=== PATIENT | male | born 1970 | race Caucasian/White ===

== ENCOUNTER 2018-05-04 07:58 | Emergency (ER) | payer OTHER ==
[2018-05-04 09:15] VITALS: BP 125/99
--- NOTE | 2018-05-04 09:22 | UC ---
UC General HPI - HPI Summary HPI Summary: roused from sleep ya ago(3 days ago) with numbness to his R forearm and weakness to R hand. not improving and wants to ensure not a stroke. no associated neck pain, ARTEAGA, visual changes, changes in vision/speech. no other focal numbness/weakness. hx high cholesterol, smoking, htn- tx in past but none now. mother had a stroke. also notes chest cold. - History of Current Complaint Stated Complaint: RIGHT ARM CONCERN, COUGH, CONGESTION Time Seen by Provider: 05/04/18 08:48 Pain Intensity: 4 Alleviating: nothing Associated Signs & Symptoms: Positive: Cough, Wheezing. Negative: Chest Pain, Fever, Headache - Allergy/Home Medications Allergies/Adverse Reactions: Allergies Allergy/AdvReac Type Severity Reaction Status Date / Time No Known Allergies Allergy Verified 05/04/18 09:16 Home Medications: Home Medications NK [No Home Medications Reported] 05/04/18 [History Confirmed 05/04/18] PMH/Surg Hx/FS Hx/Imm Hx Endocrine History: Dyslipidemia Cardiovascular History: Hypertension - Surgical History Surgical History: None - Family History Known Family History: Positive: Other - CVA - Social History Occupation: Employed Full-time Alcohol Use: Daily Alcohol Amount: 3-6 beer Substance Use Type: Marijuana Substance Use Comment - Amount & Last Used: daily usage Smoking Status (MU): Heavy Every Day Tobacco Smoker Type: Cigarettes Amount Used/How Often: 10 cigg/day and 1 bag of chew q 3 days Have You Smoked in the Last Year: Yes - Immunization History Vaccination Up to Date: Yes Review of Systems All Other Systems Reviewed And Are Negative: Yes Constitutional: Positive: Negative Skin: Positive: Negative Eyes: Positive: Negative ENT: Positive: Negative Respiratory: Positive: Shortness Of Breath, Cough Cardiovascular: Positive: Negative Gastrointestinal: Positive: Negative Genitourinary: Positive: Negative Motor: Positive: Negative Neurovascular: Positive: Negative Musculoskeletal: Positive: Negative Neurological: Positive: Weakness - RUE, Numbness - RUE Psychological: Positive: Negative Is Patient Immunocompromised?: No Physical Exam Triage Information Reviewed: Yes Appearance: Well-Appearing Vital Signs: Initial Vital Signs Temp 98.5 F 05/04/18 08:57 Pulse 76 05/04/18 08:57 Resp 16 05/04/18 08:57 BP 125/99 05/04/18 08:57 Pulse Ox 100 05/04/18 08:57 Vital Signs Reviewed: Yes Eyes: Positive: Conjunctiva Clear, Other: - PERRL, EOMI. ENT: Positive: Pharynx normal, TMs normal, Other - Tongue deviates R slightly. Negative: Nasal congestion, Nasal drainage Neck: Positive: Supple, Nontender, No Lymphadenopathy, Other: - No carotid bruits. Negative: Nuchal Rigidity Respiratory: Positive: No respiratory distress, Decreased breath sounds, Other: - occasional wheeze Cardiovascular: Positive: RRR, No Murmur, Pulses Normal Abdomen Description: Positive: Nontender, No Organomegaly, Soft Bowel Sounds: Positive: Present Musculoskeletal: Positive: ROM Intact Neurological: Positive: Other: - A&O x3. Slight droop R side of mouth and slight deviation of tongue to R otherwise CN grossly intact. Stocking distribution numness R forearm with wrist drop and weak personnel specialist but 2+ reflexes. LUE and BLE's 5/5 strength, 2+ flexes and sensations intact. Steady gait. Rapid alternating moves and heel to walk with ease. negative pronator drift and rhomberg. Psychological: Positive: Age Appropriate Behavior Skin Exam: Normal Course/Dx - Course Course Of [place] [facility] [place] report given to adriana santiago rn, charge nurse (Er attending not able to come to phone). advised of subacute cva since friday am vs radial n. palsy. R forearm numbness/weakness plus on exam droop R side of mouth and tongue deviates to R. also hx high cholesterol, prior tx of htn, smoker and FMH cva. 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 pt a&o x 3 able to make decisons and is refusing ems. advised of risk for mva, delay in care, worsening, disability and but still refused ems thus leaving ama. female friend driving pt to ER. - Differential Dx - Multi-Symptom Provider Diagnoses: RUE numness/weakness, R facial droop, tongue deviates to R. Discharge - Sign-Out/Discharge Documenting (check all that apply): Patient Departure All imaging exams completed and their final reports reviewed: No Studies - Discharge Plan Condition: Fair Disposition: AGAINST MEDICAL ADVICE Referrals: No Primary Care Phys,NOPCP [Primary Care Provider] - - Billing Disposition and Condition Condition: FAIR Disposition: Against Medical Advice
== END 2018-05-04 09:20 | disposition left against medical advice (07) ==
LOC: UCCORT 07:58
DX: R20.0 Anesthesia of skin (principal); R29.810 Facial weakness; R19.8 Other specified symptoms and signs involving the digestive system and abdomen; F17.210 Nicotine dependence, cigarettes, uncomplicated; Z82.49 Family history of ischemic heart disease and other diseases of the circulatory system
CPT/HCPCS: 93005; 99202; G0463

== ENCOUNTER 2019-07-20 11:30 | Emergency (ER) | payer MEDICAID, OTHER ==
[2019-07-20 12:14] VITALS: BP 131/75
--- NOTE | 2019-07-20 13:01 | UC ---
Shoulder Pain HPI - HPI Summary HPI Summary: right shoulder pain x 2 days no known injury , has been having pain and weakness of the right shoulder for over 10 years but getting severe over the past 2 days, no known injury pain is 8 out 10 , worse with lifting , better with rest and ice - History of Current Complaint Chief Complaint: UCUpperExtremity Stated Complaint: RT SHOULDER INJ Time Seen by Provider: 07/20/19 11:56 Hx Obtained From: Patient Onset/Duration: Gradual Onset, Lasting Days - 2, Still Present Timing: Constant Severity Initially: Severe Severity Currently: Severe Location Of Pain: Is Diffuse Pain Intensity: 8 Pain Scale Used: 0-10 Numeric Character: Aching, Throbbing Aggravating Factor(s): Movement, Lifting, Flexion, Extension Alleviating Factor(s): Rest Associated Signs And Symptoms: Positive: Weakness, Numbness/Tingling. Negative : Swelling, Redness, Bruising, Fever - Allergies/Home Medications Allergies/Adverse Reactions: Allergies Allergy/AdvReac Type Severity Reaction Status Date / Time No Known Allergies Allergy Verified 07/20/19 12:14 PMH/Surg Hx/FS Hx/Imm Hx - Additional Past Medical History Additional PMH: hypercholesterol, PTSD, depression, social anxiety - Surgical History Surgical History: None - Family History Known Family History: Positive: Other - CVA - Social History Alcohol Use: Occasionally Alcohol Amount: 3-6 beer Substance Use Type: Marijuana Substance Use Comment - Amount & Last Used: daily usage Smoking Status (MU): Heavy Every Day Tobacco Smoker Type: Cigarettes Amount Used/How Often: 10 cigg/day and 1 bag of chew q 3 days Have You Smoked in the Last Year: Yes - Immunization History Vaccination Up to Date: Yes Review of Systems All Other Systems Reviewed And Are Negative: Yes Constitutional: Positive: Negative Skin: Positive: Negative Is Patient Immunocompromised?: No Physical Exam Triage Information Reviewed: Yes Appearance: Well-Appearing, No Pain Distress, Well-Nourished Vital Signs: Initial Vital Signs Temp 98.1 F 07/20/19 12:10 Pulse 89 07/20/19 12:10 Resp 16 07/20/19 12:10 BP 131/75 07/20/19 12:10 Pulse Ox 99 07/20/19 12:10 Vital Signs Reviewed: Yes Eye Exam: Normal Eyes: Positive: Conjunctiva Clear ENT: Positive: Normal ENT inspection, Hearing grossly normal, Pharynx normal Neck: Positive: Supple, Nontender, No Lymphadenopathy Respiratory: Positive: Chest non-tender, Lungs clear, Normal breath sounds Cardiovascular: Positive: RRR, No Murmur, Pulses Normal Musculoskeletal: Positive: Other: - right shouler: no tenderness, no swelling, no erythema, pain with flexion / abdoction and rotation , decrease in strenth Diagnostics - Radiology No standard instances Radiology Interpretation Completed By: Radiologist Summary of Radiographic Findings: xray right shoulder: no fracture noted Shoulder Course/Dx - Differential Dx/Diagnosis Provider Diagnosis: Right shoulder pain Discharge ED - Sign-Out/Discharge Documenting (check all that apply): Patient Departure All imaging exams completed and their final reports reviewed: Yes - Discharge Plan Condition: Stable Disposition: HOME Patient Education Materials: Shoulder Pain (ED) Referrals: Cezar Sanches MD [Medical Doctor] - As Soon As Possible No Primary Care Phys,NOPCP [Primary Care Provider] - - Billing Disposition and Condition Condition: STABLE Disposition: Home
== END 2019-07-20 12:50 | disposition home or self-care (01) ==
LOC: UCCORT 11:30
DX: M25.511 Pain in right shoulder (principal); F17.210 Nicotine dependence, cigarettes, uncomplicated
CPT/HCPCS: 99211; G0463